=== PATIENT | female | born 1995 | race Caucasian/White ===

== ENCOUNTER 2020-03-09 21:07 | Emergency (ER) | payer OTHER ==
[~2020-03-09] VITALS: Ht 162.6 cm; Wt 68.0 kg
[2020-03-09 21:17] VITALS: BP 126/88
--- NOTE | 2020-03-09 21:35 | NUR ---
24 YEAR OLD FEMALE COMPLAINS OF SOB, TINGLING SENSATION OF LEFT FINGERTIPS, MIGRAINE, AND BODYACHES X 1 HOUR. PT STATES SHE DOES NOT HAVE COUGH. DOES NOT KNOW IF COVID EXPOSURE. PT LUNGS CLEAR BL. PT AOX4, BREATHING EVEN AND UNLABORED, SKIN WARM AND DRY. BED IN LOWEST POSITION, LOCKED, BED RAIL UPX1. PMH - DENIES ALLERGIES - NKA
--- NOTE | 2020-03-09 21:53 | NUR ---
Dr. Houston examining patient.
[2020-03-09 22:25] LABS: BASOPHILS # (AUTO) 0.1 K/uL (0.00-0.22); BASOPHILS % (AUTO) 0.6 % (0.0-2.0); EOSINOPHILS % (AUTO) 0.2 % (0.0-4.0); HEMATOCRIT 41.1 % (36-48); HEMOGLOBIN 13.6 g/dL (12.0-16.0); LYMPHOCYTES # (AUTO) 1.5 K/uL (2.5-16.5); LYMPHOCYTES % (AUTO) 11.8 % (20.5-51.1); MEAN CORPUSCULAR HEMOGLOBIN 29 pg (27-31); MEAN CORPUSCULAR HGB CONC 33 g/dL (33-37); MEAN CORPUSCULAR VOLUME 86.9 fL (80-94); MONOCYTES # (AUTO) 0.9 K/uL (0.8-1.0); MONOCYTES % (AUTO) 7.4 % (1.7-9.3); PLATELET COUNT (AUTO) 212 K/uL (140-450); RED BLOOD CELL COUNT(AUTO) 4.73 MIL/uL (4.20-5.40); RED CELL DISTRIBUTION WIDTH 13.9 % (11.6-13.7); WHITE BLOOD COUNT (AUTO) 12.5 K/uL (4.8-10.8)
--- NOTE | 2020-03-09 22:25 | NUR ---
PT ALERT AND AWAKE, BREATHING EVEN AND UNLABORED
[2020-03-09 22:55] LABS: ALBUMIN 3.9 g/dL (3.4-5.0); CARBON DIOXIDE 27.3 mmol/L (21-32); POTASSIUM 3.3 mmol/L (3.5-5.1); TOTAL BILIRUBIN 0.3 mg/dL (0.0-1.0)
[2020-03-09 23:17] VITALS: BP 126/88
--- NOTE | 2020-03-09 23:17 | NUR ---
Patient discharged with v/s stable. Written and verbal after care instructions given and explained. Patient verbalized understanding. Ambulatory with steady gait. All questions addressed prior to discharge. Advised to follow up with PMD.
== END 2020-03-09 23:17 | disposition home or self-care (01) ==
LOC: MED 21:07
DX: R55 Syncope and collapse (principal); D72.829 Elevated white blood cell count, unspecified; E87.6 Hypokalemia; E83.51 Hypocalcemia; R73.9 Hyperglycemia, unspecified
CPT/HCPCS: 36415; 80053; 81002; 81025; 85025; 93005; 99284